=== PATIENT | female | born 1945 | race Caucasian/White ===

== ENCOUNTER 2025-01-20 01:29 | Inpatient (IN) | payer MEDICARE ==
[2025-01-20] VITALS (54 sets, daily range): BP systolic 97–155; BP diastolic 44–118; PULSE 84–109; RESP 13–36; TEMP 100.5–104.7; O2SAT 95–100
[~2025-01-20] VITALS: Ht 160 cm; Wt 67.1 kg
[2025-01-20] MEDS: SODIUM CHLORIDE 0.9% 1000ML 1,000 ML IV STA ×2 (02:09→05:04)
[2025-01-20 02:17] LABS: BASOPHILS % 0.2 % (0.0-1.0); HEMATOCRIT 41.8 % (34.2-44.1); HEMOGLOBIN 14.2 g/dL (12.0-16.0); LYMPHOCYTES # (AUTO) 0.7 (1.0-3.2); LYMPHOCYTES % 4.8 % (18.0-39.1); MEAN CORPUSCULAR HEMOGLOBIN 31.4 pg (28-32); MEAN CORPUSCULAR VOLUME 92.5 fL (81-99); MONOCYTES # (AUTO) 0.2 (0.2-0.8); MONOCYTES % 1.6 % (4.4-11.3); NEUTROPHILS # (AUTO) 12.7 (2.1-6.9); PLATELET COUNT 182 x10e3/uL (140-360); RED BLOOD COUNT 4.52 x10e6/uL (3.6-5.1); RED CELL DISTRIBUTION WIDTH 12.8 % (11.7-14.4); WHITE BLOOD COUNT 13.61 x10e3/uL (4.8-10.8)
[2025-01-20 02:37] LABS: ALBUMIN 3.8 g/dL (3.5-5.0); ALBUMIN/GLOBULIN RATIO 1.4 (0.8-2.0); ANION GAP 19.7 mmol/L (8-16); BILIRUBIN,TOTAL 0.9 mg/dL (0.2-1.2); CALCIUM 8.6 mg/dL (8.4-10.2); CREATININE, SERUM 1.07 mg/dL (0.57-1.11); POTASSIUM 3.7 mmol/L (3.5-5.1); TOTAL PROTEIN 6.5 g/dL (6.5-8.1)
[2025-01-20 02:47] LABS: CORONAVIRUS COVID-19 AG NEGATIVE (NEGATIVE); INFLUENZA A AG NEGATIVE (NEGATIVE); INFLUENZA B AG NEGATIVE (NEGATIVE)
[2025-01-20 02:52] LABS: STREPTOCOCCUS GRP A ANTIGEN NEGATIVE (NEGATIVE)
[2025-01-20 03:07] LABS: TROPONIN I 0.074 ng/mL (0-0.300)
[2025-01-20 04:13] LABS: BILIRUBIN,URINE SMALL (NEGATIVE); CLARITY,URINE SL CLOUDY (CLEAR); COLOR,URINE YELLOW (YELLOW); GLUCOSE, URINE NEGATIVE (NEGATIVE); KETONES,URINE >=160 (NEGATIVE); LEUKOCYTE ESTERASE ,URINE NEGATIVE (NEGATIVE); NITRITE,URINE NEGATIVE (NEGATIVE); PH,URINE 6 (5 - 7); PROTEIN,URINE DIPSTICK >=300 (NEGATIVE); URINE UROBILINOGEN 0.2 mg/dL (0.2 - 1)
[2025-01-20] MEDS ORDERED: Morphine 2mg Syringe 2 MG/ML SYR IV PRN (04:45)
[2025-01-20] MEDS: SODIUM CHLORIDE 0.9% 1000ML 1,000 ML IV SCH (05:05)
[2025-01-20 05:07] LABS: WBC,URINE (MAN) 21-50 /HPF (0-5)
[2025-01-20 05:08] LABS: BACTERIA,URINE MANY /HPF
[2025-01-20 05:09] LABS: EPITHELIAL CELLS,URINE FEW /LPF
[2025-01-20] MEDS ORDERED: IOPAMIDOL 370 MG/ML 100 ML INFUS..BTL INJ ONE (05:49)
[2025-01-20] MEDS: ACETAMINOPHEN 1000 MG/100 ML IV PRN (07:07)
[2025-01-20] MEDS ORDERED: LISINOPRIL10 MG PO (07:33)
[2025-01-20] MEDS: Vancomycin IV 1 GM in SODIUM CHLORIDE 0.9% 250ML 250 ML IV ONE (07:36)
[2025-01-20] MEDS: SODIUM BICARBONATE 8.4% VIAL 50 ML in SODIUM CHLORIDE 0.45% 1,000 ML IV ONE (08:41)
[2025-01-20] MEDS: ACYCLOVIR SODIUM 1,000 MG in SODIUM CHLORIDE 0.9% 250ML 250 ML IV SCH (08:44)
[2025-01-20 09:00] LABS: INR 1.05; PROTHROMBIN TIME 14.3 seconds (11.9-14.5)
[2025-01-20 09:53] LABS: TROPONIN I 1.057 ng/mL (0-0.300)
[2025-01-20] MEDS: CEFTRIAXONE 2 GM in SODIUM CHLORIDE 0.9% 100 ML IV SCH (10:19)
[2025-01-20 12:31] LABS: BAND NEUTROPHILS % (MANUAL) 6 %; LYMPHOCYTES % (MANUAL) 1 % (19-48); MONOCYTES % (MANUAL) 1 % (3.4-9.0); NEUTROPHILS % (MANUAL) 92 % (40-74)
[2025-01-20] MEDS ORDERED: METOPROLOL SUCC25 MG PO (12:31)
[2025-01-20 12:32] LABS: PLATELET ESTIMATE ADEQUATE; PLATELET MORPHOLOGY COMMENT NORMAL
[2025-01-20] MEDS ORDERED: XYZAL5 MG (12:35)
[2025-01-20] MEDS ORDERED: ALENDRONATE SOD70 MG (12:35)
[2025-01-20] MEDS ORDERED: FAMOTIDINE20 MG PO (12:35)
[2025-01-20] MEDS: Ampicillin INJ 2 GM in SODIUM CHLORIDE 0.9% 100 ML IV SCH (13:36)
[2025-01-20] MEDS: SODIUM BICARBONATE 8.4% VIAL 50 ML in SODIUM CHLORIDE 0.45% 1,000 ML IV SCH (17:41)
[2025-01-20] MEDS: KETOROLAC TROMETHAMINE 30 MG/ML VIAL IV PRN (19:35)
[2025-01-21] VITALS (33 sets, daily range): BP systolic 83–163; BP diastolic 38–146; PULSE 32–117; RESP 15–29; TEMP 99.7–103.6; O2SAT 96–100
[2025-01-21 06:04] LABS: BASOPHILS # (AUTO) 0.1 (0.0-0.1); BASOPHILS % 0.3 % (0.0-1.0); HEMOGLOBIN 11.9 g/dL (12.0-16.0); LYMPHOCYTES # (AUTO) 1.9 (1.0-3.2); LYMPHOCYTES % 8.2 % (18.0-39.1); MEAN CORPUSCULAR HEMOGLOBIN 31.2 pg (28-32); MEAN CORPUSCULAR VOLUME 91.6 fL (81-99); MONOCYTES # (AUTO) 1.3 (0.2-0.8); MONOCYTES % 5.8 % (4.4-11.3); NEUTROPHILS # (AUTO) 19.8 (2.1-6.9); NEUTROPHILS % 85.1 % (38.7-80.0); PLATELET COUNT 153 x10e3/uL (140-360); RED BLOOD COUNT 3.82 x10e6/uL (3.6-5.1)
[2025-01-21 06:24] LABS: ALBUMIN/GLOBULIN RATIO 1.5 (0.8-2.0); ANION GAP 14.4 mmol/L (8-16); BILIRUBIN,TOTAL 0.5 mg/dL (0.2-1.2); CALCIUM 7.2 mg/dL (8.4-10.2); CREATININE, SERUM 0.75 mg/dL (0.57-1.11)
[2025-01-21 06:26] LABS: POTASSIUM 3.4 mmol/L (3.5-5.1)
[2025-01-21 06:43] LABS: TROPONIN I 4.018 ng/mL (0-0.300)
[2025-01-21] MEDS: POTASSIUM CHLORIDE 20MEQ/100ML 100 ML IV SCH (07:46)
[2025-01-21] MEDS: ONDANSETRON HCL INJ 2MG/ML 2ML 2 MG/ML VIAL IV PRN (08:13)
[2025-01-21] MEDS: MUPIROCIN 2% OINT 22 GM TUBE TOP SCH (09:01)
[2025-01-21 10:57] LABS: LYMPHOCYTES % (MANUAL) 11 % (19-48); MONOCYTES % (MANUAL) 5 % (3.4-9.0); NEUTROPHILS % (MANUAL) 84 % (40-74)
[2025-01-21 10:58] LABS: PLATELET ESTIMATE ADEQUATE; PLATELET MORPHOLOGY COMMENT NORMAL; RBC MORPHOLOGY COMMENT NORMAL
[2025-01-21] MEDS: CEFEPIME 2 GM in SODIUM CHLORIDE 0.9% 100 ML IV SCH (18:53)
[2025-01-21] MEDS: ACETAMINOPHEN 1000 MG/100 ML IV PRN (21:29)
[2025-01-22] VITALS (33 sets, daily range): BP systolic 103–157; BP diastolic 49–97; PULSE 25–109; RESP 13–26; TEMP 99.4–102.5; O2SAT 99–100
[2025-01-22 07:00] LABS: BASOPHILS % 0.2 % (0.0-1.0); HEMATOCRIT 28.3 % (34.2-44.1); HEMOGLOBIN 9.5 g/dL (12.0-16.0); LYMPHOCYTES # (AUTO) 1.1 (1.0-3.2); LYMPHOCYTES % 6.4 % (18.0-39.1); MEAN CORPUSCULAR HEMOGLOBIN 30.9 pg (28-32); MEAN CORPUSCULAR HGB CONC 33.6 g/dL (31-35); MEAN CORPUSCULAR VOLUME 92.2 fL (81-99); MONOCYTES # (AUTO) 1.2 (0.2-0.8); MONOCYTES % 6.9 % (4.4-11.3); NEUTROPHILS # (AUTO) 14.7 (2.1-6.9); NEUTROPHILS % 85.8 % (38.7-80.0); PLATELET COUNT 106 x10e3/uL (140-360); RED BLOOD COUNT 3.07 x10e6/uL (3.6-5.1); WHITE BLOOD COUNT 17.12 x10e3/uL (4.8-10.8)
[2025-01-22 07:30] LABS: ALBUMIN 2.4 g/dL (3.5-5.0); ALBUMIN/GLOBULIN RATIO 1.3 (0.8-2.0); ANION GAP 14.1 mmol/L (8-16); BILIRUBIN,TOTAL 0.3 mg/dL (0.2-1.2); CREATININE, SERUM 0.6 mg/dL (0.57-1.11); TOTAL PROTEIN 4.3 g/dL (6.5-8.1)
[2025-01-22 07:31] LABS: POTASSIUM 3.1 mmol/L (3.5-5.1)
[2025-01-22 07:32] LABS: CALCIUM 6.3 mg/dL (8.4-10.2)
[2025-01-22 09:06] LABS: LYMPHOCYTES % (MANUAL) 4 % (19-48); MONOCYTES % (MANUAL) 6 % (3.4-9.0); NEUTROPHILS % (MANUAL) 90 % (40-74); PLATELET MORPHOLOGY COMMENT NORMAL; RBC MORPHOLOGY COMMENT NORMAL
[2025-01-22 09:07] LABS: PLATELET ESTIMATE SLIGHTLY DECREASED
[2025-01-22] MEDS: CALCIUM GLUC 1 G/50 ML NACL 50 ML IV ONE (09:26)
[2025-01-22] MEDS: METOPROLOL SUCCINATE 25 MG TAB XL PO SCH (09:26)
[2025-01-22] MEDS: POTASSIUM CHLORIDE 20MEQ/100ML 100 ML IV SCH (11:47)
[2025-01-22] MEDS: ACETAMINOPHEN 325 MG TAB PO PRN (14:56)
[2025-01-23] VITALS (18 sets, daily range): BP systolic 105–166; BP diastolic 54–95; PULSE 59–78; RESP 13–27; TEMP 99.8–101.8; O2SAT 95–100
[2025-01-23 06:26] LABS: BASOPHILS % 0.2 % (0.0-1.0); HEMATOCRIT 31.1 % (34.2-44.1); HEMOGLOBIN 10.7 g/dL (12.0-16.0); LYMPHOCYTES # (AUTO) 1.5 (1.0-3.2); LYMPHOCYTES % 10.6 % (18.0-39.1); MEAN CORPUSCULAR HEMOGLOBIN 31.6 pg (28-32); MEAN CORPUSCULAR HGB CONC 34.4 g/dL (31-35); MEAN CORPUSCULAR VOLUME 91.7 fL (81-99); MONOCYTES % 7.1 % (4.4-11.3); NEUTROPHILS # (AUTO) 11.5 (2.1-6.9); NEUTROPHILS % 81.1 % (38.7-80.0); PLATELET COUNT 134 x10e3/uL (140-360); RED BLOOD COUNT 3.39 x10e6/uL (3.6-5.1); RED CELL DISTRIBUTION WIDTH 12.6 % (11.7-14.4); WHITE BLOOD COUNT 14.13 x10e3/uL (4.8-10.8)
[2025-01-23 07:01] LABS: ALBUMIN 2.8 g/dL (3.5-5.0); ALBUMIN/GLOBULIN RATIO 1.4 (0.8-2.0); ANION GAP 16.6 mmol/L (8-16); BILIRUBIN,TOTAL 0.6 mg/dL (0.2-1.2); CALCIUM 7.8 mg/dL (8.4-10.2); CREATININE, SERUM 0.65 mg/dL (0.57-1.11); POTASSIUM 3.6 mmol/L (3.5-5.1); TOTAL PROTEIN 4.8 g/dL (6.5-8.1)
[2025-01-23] MEDS: METOPROLOL SUCCINATE 25 MG TAB XL PO SCH (08:21)
[2025-01-23] MEDS: POTASSIUM CHLORIDE 20MEQ/100ML 100 ML IV SCH (12:23)
[2025-01-23 12:48] LABS: MAGNESIUM 1.8 MG/DL (1.3-2.1); PHOSPHORUS 1.6 MG/DL (2.3-4.7)
[2025-01-23] MEDS ORDERED: POTASSIUM PHOSPHATE 15 MM in SODIUM CHLORIDE 0.9% 250ML 250 ML IV SCH (14:00)
[2025-01-23] MEDS: POTASSIUM PHOSPHATE 15 MM in SODIUM CHLORIDE 0.9% 250ML 250 ML IV SCH (16:59)
[2025-01-24] VITALS (21 sets, daily range): BP systolic 101–166; BP diastolic 45–103; PULSE 30–90; RESP 15–28; TEMP 97.7–102.5; O2SAT 97–100
[2025-01-24 06:14] LABS: BASOPHILS % 0.3 % (0.0-1.0); EOSINOPHILS % 0.2 % (0.0-6.0); HEMOGLOBIN 11.5 g/dL (12.0-16.0); LYMPHOCYTES # (AUTO) 1.8 (1.0-3.2); LYMPHOCYTES % 12.9 % (18.0-39.1); MEAN CORPUSCULAR HEMOGLOBIN 31.1 pg (28-32); MEAN CORPUSCULAR HGB CONC 34.8 g/dL (31-35); MEAN CORPUSCULAR VOLUME 89.2 fL (81-99); MONOCYTES # (AUTO) 1.1 (0.2-0.8); MONOCYTES % 7.7 % (4.4-11.3); NEUTROPHILS % 77.8 % (38.7-80.0); PLATELET COUNT 171 x10e3/uL (140-360); RED CELL DISTRIBUTION WIDTH 12.3 % (11.7-14.4); WHITE BLOOD COUNT 14.08 x10e3/uL (4.8-10.8)
[2025-01-24 06:31] LABS: ALBUMIN 2.9 g/dL (3.5-5.0); ALBUMIN/GLOBULIN RATIO 1.2 (0.8-2.0); BILIRUBIN,TOTAL 0.8 mg/dL (0.2-1.2); CALCIUM 7.6 mg/dL (8.4-10.2); CREATININE, SERUM 0.58 mg/dL (0.57-1.11); TOTAL PROTEIN 5.4 g/dL (6.5-8.1)
[2025-01-24] MEDS: ACETAMINOPHEN 1000 MG/100 ML IV STA (07:25)
[2025-01-24 07:39] LABS: ABG HCO3 14 mmol/L (22-26); ABG PCO2 22 mmHg (35-45); ABG PH 7.41 (7.35-7.45); ABG PO2 109 mmHg (80-105); ABG TCO2 15
[2025-01-24] MEDS ORDERED: HYDRALAZINE HCL 20 MG/ML VIAL IV PRN (07:45)
[2025-01-24] MEDS: CEFTRIAXONE 2 GM in SODIUM CHLORIDE 0.9% 100 ML IV SCH (08:30)
[2025-01-24] MEDS: ACYCLOVIR SODIUM INJ 1,000 MG in SODIUM CHLORIDE 0.9% 250ML 250 ML IV SCH (09:23)
[2025-01-24] MEDS: Ampicillin INJ 2 GM in SODIUM CHLORIDE 0.9% 100 ML IV SCH (11:54)
[2025-01-24] MEDS: SODIUM PHOSPHATE IN 0.9 % NACL 15 MMOL in SODIUM CHLORIDE 0.9% 250ML 250 ML IV ONE (13:17)
[2025-01-24] MEDS: ACETAMINOPHEN 650 MG SUPP PR PRN (15:13)
[2025-01-24] MEDS: ACYCLOVIR SODIUM INJ 500 MG in SODIUM CHLORIDE 0.9% 100 ML IV SCH (16:05)
[2025-01-24] MEDS: LEVETIRACETAM 1000MG/100ML IV 100 ML IV SCH (19:57)
[2025-01-25] VITALS (21 sets, daily range): BP systolic 71–151; BP diastolic 48–108; PULSE 70–88; RESP 11–22; TEMP 99.5–101.9; O2SAT 96–100
[2025-01-25 07:08] LABS: BASOPHILS % 0.2 % (0.0-1.0); EOSINOPHILS # (AUTO) 0.1 (0.0-0.4); EOSINOPHILS % 0.6 % (0.0-6.0); HEMOGLOBIN 11.4 g/dL (12.0-16.0); LYMPHOCYTES % 12.6 % (18.0-39.1); MEAN CORPUSCULAR HEMOGLOBIN 31.1 pg (28-32); MEAN CORPUSCULAR HGB CONC 34.5 g/dL (31-35); MEAN CORPUSCULAR VOLUME 90.2 fL (81-99); MONOCYTES # (AUTO) 1.2 (0.2-0.8); MONOCYTES % 7.4 % (4.4-11.3); NEUTROPHILS # (AUTO) 12.6 (2.1-6.9); NEUTROPHILS % 78.4 % (38.7-80.0); PLATELET COUNT 199 x10e3/uL (140-360); RED BLOOD COUNT 3.66 x10e6/uL (3.6-5.1); RED CELL DISTRIBUTION WIDTH 12.2 % (11.7-14.4); WHITE BLOOD COUNT 16.01 x10e3/uL (4.8-10.8)
[2025-01-25 07:46] LABS: ALBUMIN 2.9 g/dL (3.5-5.0); ALBUMIN/GLOBULIN RATIO 1.3 (0.8-2.0); ANION GAP 15.5 mmol/L (8-16); CALCIUM 7.7 mg/dL (8.4-10.2); CREATININE, SERUM 0.59 mg/dL (0.57-1.11); POTASSIUM 3.5 mmol/L (3.5-5.1); TOTAL PROTEIN 5.2 g/dL (6.5-8.1)
[2025-01-25 07:57] LABS: BILIRUBIN,TOTAL 0.6 mg/dL (0.2-1.2)
[2025-01-25 08:13] LABS: CHOL/HDL RATIO 3.5 (3.0-3.6)
[2025-01-25 08:33] LABS: FREE T4 (FREE THYROXINE) 1.21 ng/dL (0.8-1.8); THYROID STIMULATING HORMONE 1.166 uIU/mL (0.350-4.940)
[2025-01-25] MEDS: POTASSIUM CHLORIDE 20MEQ/100ML 200 ML IV ONE (10:21)
[2025-01-25] MEDS: SODIUM PHOSPHATE IN 0.9 % NACL 15 MMOL in SODIUM CHLORIDE 0.9% 250ML 250 ML IV ONE (11:04)
[2025-01-26] VITALS (24 sets, daily range): BP systolic 80–165; BP diastolic 46–97; PULSE 42–97; RESP 12–20; TEMP 99.2–101.7; O2SAT 95–100
[2025-01-26 05:49] LABS: ABG HCO3 14 mmol/L (22-26); ABG PCO2 22 mmHg (35-45); ABG PH 7.41 (7.35-7.45); ABG PO2 109 mmHg (80-105); ABG TCO2 15
[2025-01-26 06:55] LABS: BASOPHILS % 0.4 % (0.0-1.0); EOSINOPHILS # (AUTO) 0.2 (0.0-0.4); EOSINOPHILS % 1.6 % (0.0-6.0); HEMATOCRIT 30.3 % (34.2-44.1); HEMOGLOBIN 10.6 g/dL (12.0-16.0); LYMPHOCYTES # (AUTO) 2.2 (1.0-3.2); LYMPHOCYTES % 19.4 % (18.0-39.1); MEAN CORPUSCULAR HEMOGLOBIN 31.5 pg (28-32); MEAN CORPUSCULAR VOLUME 90.2 fL (81-99); MONOCYTES # (AUTO) 0.9 (0.2-0.8); MONOCYTES % 7.8 % (4.4-11.3); NEUTROPHILS # (AUTO) 7.8 (2.1-6.9); PLATELET COUNT 206 x10e3/uL (140-360); RED BLOOD COUNT 3.36 x10e6/uL (3.6-5.1); RED CELL DISTRIBUTION WIDTH 12.3 % (11.7-14.4); WHITE BLOOD COUNT 11.12 x10e3/uL (4.8-10.8)
[2025-01-26 07:29] LABS: ALBUMIN 2.7 g/dL (3.5-5.0); ALBUMIN/GLOBULIN RATIO 1.2 (0.8-2.0); ANION GAP 13.7 mmol/L (8-16); BILIRUBIN,TOTAL 0.5 mg/dL (0.2-1.2); CREATININE, SERUM 0.63 mg/dL (0.57-1.11); POTASSIUM 3.7 mmol/L (3.5-5.1); TOTAL PROTEIN 4.9 g/dL (6.5-8.1)
[2025-01-26 07:54] LABS: CALCIUM 7.5 mg/dL (8.4-10.2)
[2025-01-26] MEDS ORDERED: GADOBENATE DIMEGLUMINE 1 ML IV ONE (08:49)
[2025-01-26] MEDS: LORATADINE 10 MG TAB PO SCH (09:06)
[2025-01-26] MEDS: IBUPROFEN 400 MG TAB PO PRN (09:07)
[2025-01-26] MEDS ORDERED: LIDOCAINE HCL 1% 30ML-PF VIAL ONE (13:46)
[2025-01-26 17:26] LABS: TOTAL PROTEIN,CSF 174.9 mg/dL (15-40)
[2025-01-26 18:18] LABS: APPEARANCE,CSF CLEAR (CLEAR); COLOR,CSF COLORLESS (COLORLESS); TUBE NUMBER 3
[2025-01-26 18:20] LABS: LYMPHOCYTES,CSF 91 % (40-80); MONOCYTES,CSF 7 %; NEUTROPHILS,CSF 2 % (0-6); TOTAL CELLS COUNTED (DIFF) 100; WHITE BLOOD CELL,CSF 282 cells/uL (0-5)
[2025-01-26 18:23] LABS: RED BLOOD CELL,CSF 0 cells/uL (0-10)
[2025-01-27] VITALS (15 sets, daily range): BP systolic 102–172; BP diastolic 57–99; PULSE 77–133; RESP 15–23; TEMP 98.2–100.1; O2SAT 82–100
[2025-01-27 06:33] LABS: BASOPHILS # (AUTO) 0.1 (0.0-0.1); BASOPHILS % 0.4 % (0.0-1.0); EOSINOPHILS # (AUTO) 0.1 (0.0-0.4); HEMATOCRIT 30.6 % (34.2-44.1); HEMOGLOBIN 10.5 g/dL (12.0-16.0); LYMPHOCYTES # (AUTO) 1.5 (1.0-3.2); LYMPHOCYTES % 12.9 % (18.0-39.1); MEAN CORPUSCULAR HEMOGLOBIN 31.3 pg (28-32); MEAN CORPUSCULAR HGB CONC 34.3 g/dL (31-35); MEAN CORPUSCULAR VOLUME 91.1 fL (81-99); MONOCYTES # (AUTO) 0.9 (0.2-0.8); MONOCYTES % 7.7 % (4.4-11.3); NEUTROPHILS # (AUTO) 8.9 (2.1-6.9); NEUTROPHILS % 77.1 % (38.7-80.0); PLATELET COUNT 220 x10e3/uL (140-360); RED BLOOD COUNT 3.36 x10e6/uL (3.6-5.1); RED CELL DISTRIBUTION WIDTH 12.5 % (11.7-14.4); WHITE BLOOD COUNT 11.48 x10e3/uL (4.8-10.8)
[2025-01-27 07:00] LABS: ALBUMIN 2.6 g/dL (3.5-5.0); ALBUMIN/GLOBULIN RATIO 1.2 (0.8-2.0); ANION GAP 14.2 mmol/L (8-16); BILIRUBIN,TOTAL 0.4 mg/dL (0.2-1.2); CALCIUM 7.5 mg/dL (8.4-10.2); CREATININE, SERUM 0.59 mg/dL (0.57-1.11); TOTAL PROTEIN 4.8 g/dL (6.5-8.1)
[2025-01-27 07:20] LABS: POTASSIUM 3.2 mmol/L (3.5-5.1)
[2025-01-27] MEDS: POTASSIUM CHLORIDE 20 MEQ TAB CR PO ONE (09:05)
[2025-01-27] MEDS: SODIUM CHLORIDE 0.9% 250ML 250 ML ONE (10:05)
[2025-01-28] VITALS (10 sets, daily range): BP systolic 137–160; BP diastolic 70–85; PULSE 72–95; RESP 14–19; TEMP 97.7–100; O2SAT 95–100
[2025-01-28] MEDS: POTASSIUM CHLORIDE 20 MEQ TAB CR PO ONE (08:06)
[2025-01-29] VITALS (10 sets, daily range): BP systolic 98–158; BP diastolic 49–78; PULSE 70–91; RESP 16–24; TEMP 97.5–98.8; O2SAT 95–98
[2025-01-29 06:43] LABS: BASOPHILS # (AUTO) 0.1 (0.0-0.1); BASOPHILS % 0.5 % (0.0-1.0); EOSINOPHILS # (AUTO) 0.2 (0.0-0.4); EOSINOPHILS % 2.1 % (0.0-6.0); HEMOGLOBIN 10.2 g/dL (12.0-16.0); LYMPHOCYTES # (AUTO) 1.7 (1.0-3.2); MEAN CORPUSCULAR HEMOGLOBIN 31.1 pg (28-32); MEAN CORPUSCULAR VOLUME 91.5 fL (81-99); MONOCYTES # (AUTO) 0.6 (0.2-0.8); MONOCYTES % 6.4 % (4.4-11.3); NEUTROPHILS # (AUTO) 6.9 (2.1-6.9); NEUTROPHILS % 72.5 % (38.7-80.0); PLATELET COUNT 261 x10e3/uL (140-360); RED BLOOD COUNT 3.28 x10e6/uL (3.6-5.1); WHITE BLOOD COUNT 9.52 x10e3/uL (4.8-10.8)
[2025-01-29 08:03] LABS: ANION GAP 14.9 mmol/L (8-16); CALCIUM 8.7 mg/dL (8.4-10.2); CREATININE, SERUM 0.66 mg/dL (0.57-1.11); MAGNESIUM 1.6 MG/DL (1.3-2.1); PHOSPHORUS 3.7 MG/DL (2.3-4.7); POTASSIUM 3.9 mmol/L (3.5-5.1)
[2025-01-29] MEDS: MAGNESIUM SULFATE 2GM/50ML 50 ML IV ONE (08:49)
[2025-01-30] VITALS (10 sets, daily range): BP systolic 123–152; BP diastolic 62–93; PULSE 73–97; RESP 17–20; TEMP 97.2–98.1; O2SAT 95–99
[2025-01-30 06:24] LABS: BASOPHILS # (AUTO) 0.1 (0.0-0.1); BASOPHILS % 0.6 % (0.0-1.0); EOSINOPHILS # (AUTO) 0.2 (0.0-0.4); EOSINOPHILS % 2.7 % (0.0-6.0); HEMATOCRIT 32.2 % (34.2-44.1); HEMOGLOBIN 10.6 g/dL (12.0-16.0); LYMPHOCYTES # (AUTO) 1.7 (1.0-3.2); LYMPHOCYTES % 20.3 % (18.0-39.1); MEAN CORPUSCULAR HEMOGLOBIN 31.7 pg (28-32); MEAN CORPUSCULAR HGB CONC 32.9 g/dL (31-35); MEAN CORPUSCULAR VOLUME 96.4 fL (81-99); MONOCYTES # (AUTO) 0.6 (0.2-0.8); MONOCYTES % 7.4 % (4.4-11.3); NEUTROPHILS # (AUTO) 5.8 (2.1-6.9); NEUTROPHILS % 68.3 % (38.7-80.0); PLATELET COUNT 232 x10e3/uL (140-360); RED BLOOD COUNT 3.34 x10e6/uL (3.6-5.1); RED CELL DISTRIBUTION WIDTH 13.6 % (11.7-14.4); WHITE BLOOD COUNT 8.53 x10e3/uL (4.8-10.8)
[2025-01-30 07:37] LABS: ALBUMIN 2.8 g/dL (3.5-5.0); ALBUMIN/GLOBULIN RATIO 1.3 (0.8-2.0); ANION GAP 14.8 mmol/L (8-16); BILIRUBIN,TOTAL 0.8 mg/dL (0.2-1.2); CALCIUM 8.5 mg/dL (8.4-10.2); CREATININE, SERUM 0.67 mg/dL (0.57-1.11); POTASSIUM 3.8 mmol/L (3.5-5.1); TOTAL PROTEIN 4.9 g/dL (6.5-8.1)
[2025-01-31] VITALS (7 sets, daily range): BP systolic 123–158; BP diastolic 60–92; PULSE 84–97; RESP 16–19; TEMP 98–98.4; O2SAT 98–100
[2025-01-31 06:35] LABS: BASOPHILS # (AUTO) 0.1 (0.0-0.1); BASOPHILS % 0.8 % (0.0-1.0); EOSINOPHILS # (AUTO) 0.2 (0.0-0.4); EOSINOPHILS % 2.4 % (0.0-6.0); HEMATOCRIT 30.4 % (34.2-44.1); HEMOGLOBIN 10.3 g/dL (12.0-16.0); LYMPHOCYTES # (AUTO) 1.9 (1.0-3.2); LYMPHOCYTES % 24.6 % (18.0-39.1); MEAN CORPUSCULAR HGB CONC 33.9 g/dL (31-35); MEAN CORPUSCULAR VOLUME 94.4 fL (81-99); MONOCYTES # (AUTO) 0.5 (0.2-0.8); MONOCYTES % 6.9 % (4.4-11.3); NEUTROPHILS % 64.7 % (38.7-80.0); PLATELET COUNT 237 x10e3/uL (140-360); RED BLOOD COUNT 3.22 x10e6/uL (3.6-5.1); RED CELL DISTRIBUTION WIDTH 14.2 % (11.7-14.4); WHITE BLOOD COUNT 7.79 x10e3/uL (4.8-10.8)
[2025-01-31 06:56] LABS: ANION GAP 14.5 mmol/L (8-16); CALCIUM 8.5 mg/dL (8.4-10.2); CREATININE, SERUM 0.69 mg/dL (0.57-1.11); POTASSIUM 3.5 mmol/L (3.5-5.1)
[2025-01-31] MEDS: SODIUM CHLORIDE 0.9% 250ML 250 ML ONE (21:16)
[2025-02-01] VITALS (7 sets, daily range): BP systolic 119–161; BP diastolic 62–82; PULSE 81–86; RESP 16–19; TEMP 97.4–98.2; O2SAT 96–100
[2025-02-01] MEDS ORDERED: LEVETIRACETAM 500 MG/5 ML VIAL IV ONE (21:40)
[2025-02-02] VITALS (8 sets, daily range): BP systolic 134–156; BP diastolic 74–95; PULSE 77–90; RESP 18–20; TEMP 97.6–97.7; O2SAT 96–99
[2025-02-03] VITALS: BP 124/71; PULSE 91; RESP 20; TEMP 98.6; O2SAT 99
[2025-02-03 04:00] VITALS: BP 154/84; PULSE 88; RESP 18; TEMP 98.2; O2SAT 98
[2025-02-03 07:33] VITALS: BP 154/83; PULSE 88; RESP 17; TEMP 97.4; O2SAT 99
[2025-02-03 08:00] VITALS: BP 154/83; PULSE 88; RESP 17; TEMP 97.4; O2SAT 99
[2025-02-03 08:32] LABS: BASOPHILS # (AUTO) 0.1 (0.0-0.1); BASOPHILS % 1.2 % (0.0-1.0); EOSINOPHILS # (AUTO) 0.2 (0.0-0.4); EOSINOPHILS % 3.6 % (0.0-6.0); HEMATOCRIT 35.5 % (34.2-44.1); LYMPHOCYTES # (AUTO) 1.3 (1.0-3.2); LYMPHOCYTES % 21.4 % (18.0-39.1); MEAN CORPUSCULAR HEMOGLOBIN 32.2 pg (28-32); MEAN CORPUSCULAR HGB CONC 33.8 g/dL (31-35); MEAN CORPUSCULAR VOLUME 95.2 fL (81-99); MONOCYTES # (AUTO) 0.4 (0.2-0.8); MONOCYTES % 6.9 % (4.4-11.3); NEUTROPHILS % 66.4 % (38.7-80.0); PLATELET COUNT 237 x10e3/uL (140-360); RED BLOOD COUNT 3.73 x10e6/uL (3.6-5.1); RED CELL DISTRIBUTION WIDTH 15.4 % (11.7-14.4); WHITE BLOOD COUNT 6.08 x10e3/uL (4.8-10.8)
[2025-02-03 08:53] LABS: ANION GAP 15.3 mmol/L (8-16); BLOOD UREA NITROGEN < 5 mg/dL (7-26); CARBON DIOXIDE 22 mmol/L (22-29); CHLORIDE 107 mmol/L (98-107); CREATININE, SERUM 0.67 mg/dL (0.57-1.11); EST GLOMERULAR FILTRATION RATE 89 ML/MIN (>=60); GLUCOSE 91 mg/dL (74-118); SODIUM 141 mmol/L (136-145)
[2025-02-03 09:09] LABS: BUN/CREATININE RATIO 7 (6-25); POTASSIUM 3.3 mmol/L (3.5-5.1)
[2025-02-03] MEDS: FAMOTIDINE 20 MG TAB PO SCH (09:22)
[2025-02-03] MEDS: LEVETIRACETAM 500 MG TAB ONE (10:17)
[2025-02-03 11:14] VITALS: BP 136/74; PULSE 79; RESP 19; TEMP 98.5; O2SAT 100
[2025-02-03] MEDS ORDERED: FAMOTIDINE20 MG PO (12:04)
[2025-02-03] MEDS ORDERED: KEPPRA500 MG PO (12:04)
[2025-02-03] MEDS ORDERED: Ibuprofen PO (12:04)
[2025-02-03] MEDS ORDERED: TOPROL XL25 MG PO (12:04)
[2025-02-03] MEDS ORDERED: AMPICILLIN SODIU1 GM IV (12:04)
[2025-02-03 12:54] LABS: HSV 1 BY PCR Negative; HSV 2 BY PCR Negative
[2025-02-03 15:22] VITALS: BP 128/81; PULSE 88; RESP 17; TEMP 97.4; O2SAT 100
== END 2025-02-03 16:21 | DRG 871 ==
LOC: ER 01:35 → ERHOLD 04:35 → ICU 06:05 → IMCU 01-21 12:10 → ICU 01-21 12:21 → IMCU 01-21 12:31 → ICU 01-21 12:37 → MED/SURG3 01-30 06:55
PROVIDERS: ADMIT Internal Medicine; ATTEND Internal Medicine
PROC: 02HV33Z Insertion of Infusion Device into Superior Vena Cava, Percutaneous Approach (ICD-10-PCS; 2025-01-20)
PROC: B548ZZA Ultrasonography of Superior Vena Cava, Guidance (ICD-10-PCS; 2025-01-20)
PROC: 3E03329 Introduction of Other Anti-infective into Peripheral Vein, Percutaneous Approach (ICD-10-PCS; 2025-01-20)
PROC: 4A033R1 Measurement of Arterial Saturation, Peripheral, Percutaneous Approach (ICD-10-PCS; 2025-01-24)
PROC: 4A033R1 Measurement of Arterial Saturation, Peripheral, Percutaneous Approach (ICD-10-PCS; 2025-01-24)
PROC: 009U3ZX Drainage of Spinal Canal, Percutaneous Approach, Diagnostic (ICD-10-PCS; principal; 2025-01-26)
PROC: B01B1ZZ Fluoroscopy of Spinal Cord using Low Osmolar Contrast (ICD-10-PCS; 2025-01-26)
DX: A41.3 Sepsis due to Hemophilus influenzae (principal); G93.41 Metabolic encephalopathy; R65.21 Severe sepsis with septic shock; I21.A1 Myocardial infarction type 2; J10.00 Influenza due to other identified influenza virus with unspecified type of pneumonia; N39.0 Urinary tract infection, site not specified; D84.821 Immunodeficiency due to drugs; E87.20 Acidosis, unspecified; A32.12 Listerial meningoencephalitis; A41.51 Sepsis due to Escherichia coli [E. coli]; R56.9 Unspecified convulsions; E83.39 Other disorders of phosphorus metabolism; E87.6 Hypokalemia; I10 Essential (primary) hypertension; M06.9 Rheumatoid arthritis, unspecified; F03.90 Unspecified dementia, unspecified severity, without behavioral disturbance, psychotic disturbance, mood disturbance, and anxiety; I34.0 Nonrheumatic mitral (valve) insufficiency; T39.4X5A Adverse effect of antirheumatics, not elsewhere classified, initial encounter; Z79.69 Long term (current) use of other immunomodulators and immunosuppressants; Y92.009 Unspecified place in unspecified non-institutional (private) residence as the place of occurrence of the external cause; M19.91 Primary osteoarthritis, unspecified site; R53.81 Other malaise; Z11.52 Encounter for screening for COVID-19; Z79.899 Other long term (current) drug therapy; Z88.0 Allergy status to penicillin
CPT/HCPCS: 36415; 36569; 36600; 51700; 62328; 70450; 70553; 71045; 71260; 74177; 74470; 80048; 80053; 80061; 81001; 82550; 82805; 82945; 82948; 83518; 83605; 83690; 83735; 83880; 84100; 84157; 84439; 84443; 84484; 85025; 85610; 86592; 87040; 87070; 87071; 87086; 87186; 87205; 87529; 89051; 93005; 93306; 94799; 95812; 99252; 99284; J0692; J0696; J1885; J2003; J2405; J2543; J3475; J3480; J7030; J7050; Q9967